=== PATIENT | female | born 1950 | race Caucasian/White ===

== ENCOUNTER → 2017-09-14 | Outpatient (CLI) | payer MEDICARE ==
[~2017-09-14] MED LIST: CLON.5 PO; CLON1 PO; CRUTCH2 USE; CYCL10 PO; DIPH50 PO; GABA300 PO; HYDACE5 PO; HYDACE5325 PO; IBUP600 PO; MELA3 PO; METH10 PO; ONDA4ODT MM; OXYACE5T PO; OXYACE7.5T PO; OXYC15ER PO
== END ==
LOC: LAB SHORT 07:34 → PLD 07:34
DX: D22.9 Melanocytic nevi, unspecified (principal)
CPT/HCPCS: 88305

== ENCOUNTER 2017-11-10 18:00 | Inpatient (IN) | payer MEDICARE ==
[~2017-11-10] VITALS: Ht 154.9 cm; Wt 47.6 kg
[2017-11-10] MEDS ORDERED: TRAZ50 PO (18:15)
[2017-11-10] MEDS ORDERED: CYCL10 PO (18:15)
[2017-11-10] MEDS ORDERED: TRAM50 PO (18:15)
[2017-11-10] MEDS ORDERED: LEVSOD75 PO (18:16)
[2017-11-10] MEDS ORDERED: Lomotil Tablet1 EACH PO (19:07)
[2017-11-11] MEDS ORDERED: TOCO1000 PO (00:06)
[2017-11-11] MEDS ORDERED: BIOTIN-D1 GM XX (00:08)
[2017-11-14 06:06] LABS: BASOPHILS ABSOLUTE AUTO 0.04 K/mm3 (0.00-0.23); BASOPHILS PERCENT AUTO 1 % (0-2); EOSINOPHILS ABSOLUTE AUTO 0.38 K/mm3 (0.00-0.68); EOSINOPHILS PERCENT AUTO 9 % (0-6); Hematocrit 31.1 % (33.0-51.0); Hemoglobin 10.2 g/dL (11.5-16.0); IMMATURE GRAN ABSOLUTE AUTO 0.02 K/mm3 (0.00-0.10); IMMATURE GRAN PERCENT AUTO 1 % (0-1); LYMPHOCYTES ABSOLUTE AUTO 1.31 K/mm3 (0.84-5.20); LYMPHOCYTES PERCENT AUTO 32 % (21-46); MONOCYTES ABSOLUTE AUTO 0.31 K/mm3 (0.16-1.47); MONOCYTES PERCENT AUTO 8 % (4-13); Mean Corpuscular HGB 30.1 pg (26.0-34.0); Mean Corpuscular HGB Conc 32.8 g/dL (31.5-36.5); Mean Corpuscular Volume 92 fL (80-100); Mean Platelet Volume 11.8 fL (9.1-12.4); NEUTROPHILS ABSOLUTE AUTO 2.07 K/mm3 (1.96-9.15); NEUTROPHILS PERCENT AUTO 50 % (41-73); Platelet Count 85 K/mm3 (150-400); RDW Coefficient Variation 13.2 % (11.7-14.2); RDW Standard Deviation 44.6 fL (35.1-46.3); Red Blood Cell Count 3.39 M/mm3 (3.80-5.20); White Blood Cell Count 4.13 K/mm3 (4.00-11.30)
[2017-11-14 06:27] LABS: Anion Gap 8 mmol/L (6-16); Blood Urea Nitrogen 12 mg/dL (8-24); Bun/Creatinine Ratio 16.2 (12.0-20.0); CO2, Blood 26 mmol/L (21-32); Calcium, Blood 8.1 mg/dL (8.5-10.1); Chloride, Blood 104 mmol/L (98-108); Creatinine, Blood 0.74 mg/dL (0.40-1.00); Glomerular Filtration Rate >60 (60-); Glucose, Blood 85 mg/dL (70-99); Sodium, Blood 138 mmol/L (136-145)
[2017-11-16] MEDS ORDERED: ACET325 PO (12:13)
[2017-11-16] MEDS ORDERED: ASCO500 PO (12:13)
[2017-11-16] MEDS ORDERED: BISA10S PR (12:14)
[2017-11-16] MEDS ORDERED: BISA5EC PO (12:14)
[2017-11-16] MEDS ORDERED: Miacalcin I200 IU/ML (12:15)
[2017-11-16] MEDS ORDERED: SOMA350 MG PO (12:17)
[2017-11-16] MEDS ORDERED: DOCU100 PO (12:17)
[2017-11-16] MEDS ORDERED: CAPSAICIN 0.025% TOP (12:17)
[2017-11-16] MEDS ORDERED: Ferrous Sulfat325 M2 PO (12:18)
[2017-11-16] MEDS ORDERED: DIAZ5 PO (12:18)
[2017-11-16] MEDS ORDERED: KETO10 PO (12:19)
[2017-11-16] MEDS ORDERED: GAVILAX17 GM PO (12:19)
[2017-11-16] MEDS ORDERED: LIDO700A20 TOP (12:19)
[2017-11-16] MEDS ORDERED: PANT40 PO (12:20)
[2017-11-16] MEDS ORDERED: Senna8.6 MG PO (12:20)
== END 2017-11-16 15:50 | DRG 536 ==
LOC: ER 18:00 → MEDS 18:01 → ER 21:31 → MEDS 21:31 → EDPENDDIS 11-16 07:34 → ENPENDDIS 11-16 07:34 → MEDS 11-16 15:50
PROVIDERS: Family Medicine
DX: S32.9XXA Fracture of unspecified parts of lumbosacral spine and pelvis, initial encounter for closed fracture (principal); F11.20 Opioid dependence, uncomplicated; D64.9 Anemia, unspecified; E03.9 Hypothyroidism, unspecified; M81.0 Age-related osteoporosis without current pathological fracture; G89.4 Chronic pain syndrome; Z66 Do not resuscitate; W19.XXXA Unspecified fall, initial encounter; Z88.5 Allergy status to narcotic agent; Z88.8 Allergy status to other drugs, medicaments and biological substances
CPT/HCPCS: 36415; 51702; 73502; 80048; 85025; 96372; 96374; 96375; 96376; 97110; 97116; 97162; 97165; 97530; 97535; 99285-25; G0378; G8978; G8979; G8987; G8988; J0630; J1170; J1644; J1885; J3010

== ENCOUNTER 2017-11-21 13:44 | Emergency (ER) | payer MEDICARE ==
[~2017-11-21] VITALS: Ht 154.9 cm; Wt 44.5 kg
[~2017-11-21 13:44] MED LIST changes: +ACET325 PO; +ASCO500 PO; +BIOTIN-D1 GM XX; +BISA10S PR; +BISA5EC PO; +CAPSAICIN 0.025% TOP; +DIAZ5 PO; +DOCU100 PO; +Ferrous Sulfat325 M2 PO; +GAVILAX17 GM PO; +KETO10 PO; +LEVSOD75 PO; +LIDO700A20 TOP; +Lomotil Tablet1 EACH PO; +Miacalcin I200 IU/ML; +PANT40 PO; +SOMA350 MG PO; +Senna8.6 MG PO; +TOCO1000 PO; +TRAM50 PO; +TRAZ50 PO
== END 2017-11-21 14:57 | disposition home or self-care (01) ==
LOC: ER 13:44
DX: S29.011A Strain of muscle and tendon of front wall of thorax, initial encounter (principal); Z88.5 Allergy status to narcotic agent; Z88.1 Allergy status to other antibiotic agents; Z88.8 Allergy status to other drugs, medicaments and biological substances; Z79.899 Other long term (current) drug therapy; X50.1XXA Overexertion from prolonged static or awkward postures, initial encounter
CPT/HCPCS: 99283

== ENCOUNTER 2021-08-24 07:31 | Emergency (ER) | payer MEDICARE ==
[~2021-08-24] VITALS: Ht 154.9 cm; Wt 45.4 kg
== END 2021-08-24 10:27 | disposition home or self-care (01) ==
LOC: ER 07:31
DX: M48.54XA Collapsed vertebra, not elsewhere classified, thoracic region, initial encounter for fracture (principal); M48.56XA Collapsed vertebra, not elsewhere classified, lumbar region, initial encounter for fracture; Z88.1 Allergy status to other antibiotic agents; Z88.5 Allergy status to narcotic agent; Z88.8 Allergy status to other drugs, medicaments and biological substances; Z79.899 Other long term (current) drug therapy; Z91.81 History of falling
CPT/HCPCS: 72070; 72100; A9270

== ENCOUNTER 2021-10-07 20:33 | Emergency (ER) | payer MEDICARE ==
[~2021-10-07] VITALS: Ht 152.4 cm; Wt 44.5 kg
[2021-10-07 21:18] LABS: BASOPHILS ABSOLUTE AUTO 0.05 K/mm3 (0.00-0.23); BASOPHILS PERCENT AUTO 1 % (0-2); EOSINOPHILS ABSOLUTE AUTO 0.02 K/mm3 (0.00-0.68); EOSINOPHILS PERCENT AUTO 0 % (0-6); Hematocrit 42.7 % (33.0-51.0); IMMATURE GRAN PERCENT AUTO 1 % (0-1); LYMPHOCYTES ABSOLUTE AUTO 0.64 K/mm3 (0.84-5.20); LYMPHOCYTES PERCENT AUTO 7 % (21-46); MONOCYTES PERCENT AUTO 7 % (4-13); Mean Corpuscular HGB Conc 32.8 g/dL (31.5-36.5); Mean Corpuscular Volume 88 fL (80-100); Mean Platelet Volume 10.3 fL (9.1-12.4); NEUTROPHILS ABSOLUTE AUTO 8.24 K/mm3 (1.96-9.15); NEUTROPHILS PERCENT AUTO 85 % (41-73); Platelet Count 305 K/mm3 (150-400); RDW Coefficient Variation 14.4 % (11.7-14.2); RDW Standard Deviation 46.3 fL (35.1-46.3); Red Blood Cell Count 4.83 M/mm3 (3.80-5.20); White Blood Cell Count 9.75 K/mm3 (4.00-11.30)
[2021-10-07 21:40] LABS: Albumin, Blood 3.4 g/dL (3.4-5.0); Albumin/Globulin Ratio 0.9 (0.8-1.8); Bilirubin, Total 1.1 mg/dL (0.1-1.0); Calcium, Blood 9.2 mg/dL (8.5-10.1); Creatinine, Blood 0.67 mg/dL (0.40-1.00); Globulin, Blood 3.7 g/dL (2.2-4.0); Potassium, Blood 3.2 mmol/L (3.5-5.5); Total Protein, Blood 7.1 g/dL (6.4-8.2)
[2021-10-08 00:03] LABS: Source, Urine Straight Cath
[2021-10-08 00:05] LABS: Blood, Urine 1+ (Neg); Glucose Qualitative, Urine Neg (Neg); Ketones, Urine 4+ (Neg); Leukocyte Esterase, Urine Neg (Neg); Nitrite, Urine Neg (Neg); Protein, Urine 1+ (Neg); Urobilinogen, Urine 1+ (Normal)
[2021-10-08 00:08] LABS: Appearance, Urine Hazy (Clear); Bilirubin, Urine 1+ (Neg); Color, Urine Yellow (P-Yellow)
[2021-10-08 00:20] LABS: Bacteria Rare /hpf; Red Blood Cells, Urine 0-2 /hpf (0-2); Squamous Epithelial Cells Not Seen /hpf (Few); Transitional Epithelial Cells Few /hpf (0-Rare); White Blood Cells, Urine Not Seen /hpf (0-5)
[2021-10-08 00:21] LABS: U Amphetamine Screen Not Detected; U Barbituate Screen Not Detected; U Benzodiazapine Screen DETECTED; U Buprenorphine Screen Not Detected; U Cannabinoids Screen Not Detected; U Cocaine Screen Not Detected; U Methadone Screen Not Detected; U Methamphetamine Screen Not Detected; U Opiates Screen Not Detected; U Oxycodone Screen DETECTED; U Phencyclidine Screen Not Detected; U Propoxyphene Screen Not Detected
== END 2021-10-08 05:39 | disposition home or self-care (01) ==
LOC: ER 20:33
PROVIDERS: Student in an Organized Health Care Education/Training Program
DX: S22.42XA Multiple fractures of ribs, left side, initial encounter for closed fracture (principal); M48.57XA Collapsed vertebra, not elsewhere classified, lumbosacral region, initial encounter for fracture; W19.XXXA Unspecified fall, initial encounter; Z79.899 Other long term (current) drug therapy; Z88.5 Allergy status to narcotic agent; Z88.1 Allergy status to other antibiotic agents; Z88.8 Allergy status to other drugs, medicaments and biological substances
CPT/HCPCS: 36415; 70450; 71101; 72125; 72128; 72131; 73620; 80053; 81001; 82140; 82550; 83735; 84484; 85025; 93005; 93010; 96374; 96376; 99285-25; A9270; J2270; J7030

== ENCOUNTER 2021-10-10 12:56 | Emergency (ER) | payer MEDICARE ==
[~2021-10-10] VITALS: Ht 154.9 cm; Wt 40.8 kg
[2021-10-10 13:57] LABS: BASOPHILS ABSOLUTE AUTO 0.03 K/mm3 (0.00-0.23); BASOPHILS PERCENT AUTO 0 % (0-2); EOSINOPHILS PERCENT AUTO 0 % (0-6); Hematocrit 35.8 % (33.0-51.0); Hemoglobin 12.2 g/dL (11.5-16.0); IMMATURE GRAN ABSOLUTE AUTO 0.19 K/mm3 (0.00-0.10); IMMATURE GRAN PERCENT AUTO 2 % (0-1); LYMPHOCYTES ABSOLUTE AUTO 0.44 K/mm3 (0.84-5.20); LYMPHOCYTES PERCENT AUTO 4 % (21-46); MONOCYTES ABSOLUTE AUTO 0.64 K/mm3 (0.16-1.47); MONOCYTES PERCENT AUTO 5 % (4-13); Mean Corpuscular HGB 29.2 pg (26.0-34.0); Mean Corpuscular HGB Conc 34.1 g/dL (31.5-36.5); Mean Corpuscular Volume 86 fL (80-100); Mean Platelet Volume 10.3 fL (9.1-12.4); NEUTROPHILS ABSOLUTE AUTO 11.09 K/mm3 (1.96-9.15); NEUTROPHILS PERCENT AUTO 90 % (41-73); Platelet Count 258 K/mm3 (150-400); RDW Coefficient Variation 14.4 % (11.7-14.2); RDW Standard Deviation 44.4 fL (35.1-46.3); Red Blood Cell Count 4.18 M/mm3 (3.80-5.20); White Blood Cell Count 12.39 K/mm3 (4.00-11.30)
[2021-10-10 14:14] LABS: Albumin, Blood 3.2 g/dL (3.4-5.0); Bilirubin, Total 1.3 mg/dL (0.1-1.0); Bun/Creatinine Ratio 42.6 (12.0-20.0); Calcium, Blood 8.8 mg/dL (8.5-10.1); Creatinine, Blood 0.47 mg/dL (0.40-1.00); Globulin, Blood 3.1 g/dL (2.2-4.0); Potassium, Blood 2.9 mmol/L (3.5-5.5); Total Protein, Blood 6.3 g/dL (6.4-8.2)
[2021-10-10 14:34] LABS: Source, Urine Fem Cath
[2021-10-10 14:39] LABS: Bilirubin, Urine Neg (Neg); Blood, Urine 1+ (Neg); Color, Urine Yellow (P-Yellow); Glucose Qualitative, Urine Neg (Neg); Ketones, Urine 4+ (Neg); Leukocyte Esterase, Urine Neg (Neg); Nitrite, Urine Neg (Neg); Protein, Urine 1+ (Neg); Urobilinogen, Urine NORM (Normal)
[2021-10-10 14:49] LABS: Appearance, Urine Hazy (Clear)
[2021-10-10 14:50] LABS: Amorphous Light (0-Heavy); Bacteria Mod /hpf; Hyaline Casts 0-2 /lpf (0-2); Mucus Light (0-Heavy); Red Blood Cells, Urine 0-2 /hpf (0-2); Renal Epithelial Rare /hpf (0-Rare); Squamous Epithelial Cells Rare /hpf (Few); White Blood Cells, Urine 0-2 /hpf (0-5)
[2021-10-10 15:01] LABS: U Opiates Screen DETECTED
[2021-10-10 15:02] LABS: U Amphetamine Screen Not Detected; U Barbituate Screen Not Detected; U Benzodiazapine Screen DETECTED; U Buprenorphine Screen Not Detected; U Cannabinoids Screen Not Detected; U Cocaine Screen Not Detected; U Methadone Screen Not Detected; U Methamphetamine Screen Not Detected; U Oxycodone Screen DETECTED; U Phencyclidine Screen Not Detected; U Propoxyphene Screen Not Detected
[2021-10-10 15:03] LABS: Free Thyroxine 1.45 ng/dL (0.70-1.60)
[2021-10-10 15:05] LABS: Triiodothyronine, Free 1.71 pg/mL (2.18-3.98)
[2021-10-11 11:55] LABS: Influenza A, PCR NEGATIVE (NEGATIVE); Influenza B, PCR NEGATIVE (NEGATIVE); Resp Syncytial Virus, PCR NEGATIVE (NEGATIVE); SARS-Cov-2 (COVID-19) PCR, MMC NEGATIVE (NEGATIVE)
== END 2021-10-11 16:09 ==
LOC: ER 12:56
PROVIDERS: Student in an Organized Health Care Education/Training Program
DX: R41.0 Disorientation, unspecified (principal); E03.9 Hypothyroidism, unspecified; S40.022A Contusion of left upper arm, initial encounter; S40.021A Contusion of right upper arm, initial encounter; S90.112A Contusion of left great toe without damage to nail, initial encounter; I10 Essential (primary) hypertension; E80.6 Other disorders of bilirubin metabolism; E87.6 Hypokalemia; K76.89 Other specified diseases of liver; Z91.81 History of falling; W06.XXXA Fall from bed, initial encounter
CPT/HCPCS: 0241U; 36415; 51798; 71045; 76705; 80053; 81001; 82140; 84439; 84481; 85025; 93005; 93010; 97162; 97530; A9270; G0480; P9612

== ENCOUNTER 2024-05-04 06:09 | Observation (INO) | payer OTHER ==
[~2024-05-04] VITALS: Ht 57.5 cm; Wt 87.2 kg
[~2024-05-04 06:09] MED LIST changes: +Budeprion Xl300 MG PO; +LISINOPRIL2.5 MG PO; +OXYC10TA19 PO; +PROZAC20 M9 PO; +TRAZ100 PO; -TRAZ50 PO
[2024-05-04 06:35] LABS: BASOPHILS ABSOLUTE AUTO 0.04 K/mm3 (0.00-0.23); BASOPHILS PERCENT AUTO 0 % (0-2); EOSINOPHILS ABSOLUTE AUTO 0.07 K/mm3 (0.00-0.68); EOSINOPHILS PERCENT AUTO 1 % (0-6); Hematocrit 33.6 % (33.0-51.0); Hemoglobin 11.1 g/dL (11.5-16.0); IMMATURE GRAN ABSOLUTE AUTO 0.09 K/mm3 (0.00-0.10); IMMATURE GRAN PERCENT AUTO 1 % (0-1); LYMPHOCYTES ABSOLUTE AUTO 0.91 K/mm3 (0.84-5.20); LYMPHOCYTES PERCENT AUTO 7 % (21-46); MONOCYTES ABSOLUTE AUTO 0.77 K/mm3 (0.16-1.47); MONOCYTES PERCENT AUTO 6 % (4-13); Mean Corpuscular HGB 29.3 pg (26.0-34.0); Mean Corpuscular Volume 89 fL (80-100); Mean Platelet Volume 9.7 fL (9.1-12.4); NEUTROPHILS ABSOLUTE AUTO 10.61 K/mm3 (1.96-9.15); NEUTROPHILS PERCENT AUTO 85 % (41-73); Platelet Count 353 K/mm3 (150-400); RDW Coefficient Variation 12.8 % (11.7-14.2); Red Blood Cell Count 3.79 M/mm3 (3.80-5.20); White Blood Cell Count 12.49 K/mm3 (4.00-11.30)
[2024-05-04 06:58] LABS: Albumin, Blood 2.7 g/dL (3.4-5.0); Albumin/Globulin Ratio 0.8 (0.8-1.8); Bilirubin, Total 0.6 mg/dL (0.1-1.0); Bun/Creatinine Ratio 24.1 (12.0-20.0); Calcium, Blood 8.1 mg/dL (8.5-10.1); Creatinine, Blood 0.62 mg/dL (0.40-1.00); Globulin, Blood 3.6 g/dL (2.2-4.0); Potassium, Blood 3.3 mmol/L (3.5-5.5); Total Protein, Blood 6.3 g/dL (6.4-8.2)
[2024-05-04 07:46] LABS: Free Thyroxine 1.78 ng/dL (0.70-1.60); Magnesium, Blood 1.7 mg/dL (1.6-2.4); Thyroid Stimulating Hormone 0.729 uIU/mL (0.360-4.800)
[2024-05-04 08:29] LABS: Source, Urine Clean Catch
[2024-05-04 08:43] LABS: Appearance, Urine Clear (Clear); Bilirubin, Urine Neg (Neg); Blood, Urine Neg (Neg); Color, Urine Yellow (P-Yellow); Glucose Qualitative, Urine Neg (Neg); Ketones, Urine Neg (Neg); Leukocyte Esterase, Urine Neg (Neg); Nitrite, Urine Neg (Neg); Protein, Urine 2+ (Neg); Specific Gravity, Urine 1.015 (1.003-1.022); Urobilinogen, Urine 2+ (Normal); pH, Urine 6.5 (5.0-8.0)
[2024-05-04 08:51] LABS: Bacteria Not Seen /hpf; Mucus Light (0-Heavy); Red Blood Cells, Urine 0-2 /hpf (0-2); Squamous Epithelial Cells Rare /hpf (Few); White Blood Cells, Urine 0-2 /hpf (0-5)
[2024-05-04] MEDS ORDERED: Bisacodyl 5 MG TabEC PO PRN (11:30)
[2024-05-04] MEDS ORDERED: Docusate Sodium 100 MG Cap PO PRN (11:35)
[2024-05-04] MEDS ORDERED: Acetaminophen 325 MG TABLET PO PRN (11:40)
[2024-05-04] MEDS ORDERED: Sennosides 8.6 MG Tab PO PRN (11:40)
[2024-05-04] MEDS ORDERED: OxyCODONE HCL 5 MG TAB PO PRN (11:40)
[2024-05-04] MEDS ORDERED: Potassium Chloride 20 MEQ TabCR PO ONE (12:00)
[2024-05-04] MEDS ORDERED: Potassium Chloride 40 MEQ in NS 250 ML IV ONE (12:30)
[2024-05-04] MEDS ORDERED: Capsaicin 0.025% Cream TOP PRN (13:00)
[2024-05-04] MEDS ORDERED: FLU VACC TS2024-25(6MOS UP)/PF 45 MCG/0.5 ML SYRINGE IM ONE (13:30)
[2024-05-04 15:40] VITALS: BP 136/90
--- NOTE | 2024-05-04 18:37 | NUR ---
ADMISSION NOTE: PATIENT ARRIVES TO ROOM AT 1530 VIA GURNEY FROM ER FOR DX'S OF TIA. PATIENT TRANSFERRED TO BED USING SLIDER SHEET c 3 MAX ASSIST. PATIENT ORIENTATED TO ROOM AND CALL SYSTEM. PATIENT ADMISSION, MEDRIC AND SKIN ASSESSMENT c 2 RN'S VERIFIED COMPLETED. PATIENT NOT ABLE TO CONTRIBUTE ANY MEDICAL HX D/T AMS. ALL MEDICAL HX AND MEDRIC WAS PROVIDED BY PRIVATE CAREGIVER NAME PRIYA AT BEDSIDE. PATIENT A/O TO SELF ONLY, CONFUSED, ANXIOUS. PATIENT REPORTS VISUAL HALLUCINATION. PER PATIENT "I'M SEEING BETTLES AND BLUE SIGNED COLOR IN ROOM. 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 PATIENT REPORTS PAIN TO SHOULDER, MEDICATED c PAIN MEDS PER EMAR. PATIENT IS CONTINENT OF BLADDER, USES BEDPAN c 1 ASSIST. VITAL SIGNS REVIEWED. BED ALARM ON FOR SAFETY. CALL LIGHT IN REACH.
[2024-05-04 20:29] VITALS: BP 157/88
[2024-05-04] MEDS ORDERED: Melatonin 3 MG Tab PO SCH (21:00)
[2024-05-04] MEDS ORDERED: Diazepam 5 MG Tab PO PRN (23:25)
--- NOTE | 2024-05-05 00:14 | NUR ---
PT IS BECOMING INCREASINGLY ANXIOUS AND PARANOID. HOSPITALIST WAS CALLED CONCERNING ANXIETY RELIEF. HOSPITALIST GAVE ORDERS FOR VALIUM.
[2024-05-05 01:34] VITALS: BP 131/63
[2024-05-05 05:15] LABS: BASOPHILS ABSOLUTE AUTO 0.05 K/mm3 (0.00-0.23); BASOPHILS PERCENT AUTO 0 % (0-2); EOSINOPHILS ABSOLUTE AUTO 0.14 K/mm3 (0.00-0.68); EOSINOPHILS PERCENT AUTO 1 % (0-6); Hematocrit 31.9 % (33.0-51.0); Hemoglobin 10.3 g/dL (11.5-16.0); IMMATURE GRAN ABSOLUTE AUTO 0.13 K/mm3 (0.00-0.10); IMMATURE GRAN PERCENT AUTO 1 % (0-1); LYMPHOCYTES ABSOLUTE AUTO 1.46 K/mm3 (0.84-5.20); LYMPHOCYTES PERCENT AUTO 12 % (21-46); MONOCYTES ABSOLUTE AUTO 0.91 K/mm3 (0.16-1.47); MONOCYTES PERCENT AUTO 7 % (4-13); Mean Corpuscular HGB 28.7 pg (26.0-34.0); Mean Corpuscular HGB Conc 32.3 g/dL (31.5-36.5); Mean Corpuscular Volume 89 fL (80-100); Mean Platelet Volume 9.8 fL (9.1-12.4); NEUTROPHILS ABSOLUTE AUTO 9.82 K/mm3 (1.96-9.15); NEUTROPHILS PERCENT AUTO 79 % (41-73); Platelet Count 379 K/mm3 (150-400); RDW Coefficient Variation 12.8 % (11.7-14.2); RDW Standard Deviation 41.9 fL (35.1-46.3); Red Blood Cell Count 3.59 M/mm3 (3.80-5.20); White Blood Cell Count 12.51 K/mm3 (4.00-11.30)
[2024-05-05 05:39] LABS: Alanine Aminotransfer (ALT/SGP 16 U/L (12-78); Albumin, Blood 2.8 g/dL (3.4-5.0); Albumin/Globulin Ratio 0.8 (0.8-1.8); Alk Phos 82 U/L (50-136); Anion Gap 11 mmol/L (3-11); Aspartate Aminotrans (AST/SGOT 33 U/L (12-37); Bilirubin, Total 0.5 mg/dL (0.1-1.0); Blood Urea Nitrogen 15 mg/dL (8-24); Bun/Creatinine Ratio 26.5 (12.0-20.0); CHOL/HDL RATIO 1.8; CO2, Blood 22 mmol/L (21-32); Calcium, Blood 8.7 mg/dL (8.5-10.1); Chloride, Blood 109 mmol/L (98-108); Cholesterol 98 mg/dL (50-200); Creatinine, Blood 0.57 mg/dL (0.40-1.00); Globulin, Blood 3.5 g/dL (2.2-4.0); Glomerular Filtration Rate 95 (60-); Glucose, Blood 76 mg/dL (70-99); HDL Cholesterol 56 mg/dL (>39); LDL/HDL RATIO 0.6; Low Density Lipoprotein Chol 32 mg/dL (0-110); Potassium, Blood 3.8 mmol/L (3.5-5.5); Sodium, Blood 138 mmol/L (136-145); Total Protein, Blood 6.3 g/dL (6.4-8.2); Triglycerides 48 mg/dL (30-160); Very Low Density Lipoprot Chol 9 mg/dL (6-32)
[2024-05-05] MEDS ORDERED: Levothyroxine Sodium 0.075 MG Tab PO SCH (06:00)
[2024-05-05] MEDS ORDERED: Pantoprazole Sodium 40 MG Tab PO SCH (06:00)
--- NOTE | 2024-05-05 06:14 | NUR ---
SHIFT SUMMARY PT HAS BEEN RESTING IN BED. PT HAS BEEN AOX2, CONFUSED AND HALLUCINATING. PT HAS BEEN REDIRECTABLE, BUT EXPRESSES ANXIETY ABOUT HER HALLUCINATIONS. SHE HAS BEEN TALKING OUT LOUD FOR MOST OF THE NIGHT. HER SPEECH VARIES IN VOLUME, SEEMINGLY AT RANDOM. PT HAS BEEN ON RA. SHE HAS BEEN ON TELE WELL. PT HAS BEEN BEDREST ALL NIGHT. NO OTHER COMPLAINTS. NO ACUTE EVENTS OVERNIGHT.
[2024-05-05 07:39] VITALS: BP 146/82
[2024-05-05] MEDS ORDERED: Ascorbic Acid 500 MG Tab PO SCH (09:00)
[2024-05-05] MEDS ORDERED: FLUoxetine HCL 20 MG CAP PO SCH (09:00)
[2024-05-05] MEDS ORDERED: Aspirin 81 MG Chew PO SCH (09:00)
[2024-05-05] MEDS ORDERED: Lidocaine 4% 1 Patch TOP SCH (09:00)
[2024-05-05] MEDS ORDERED: Atorvastatin 40 MG Tab PO SCH (09:00)
[2024-05-05] MEDS ORDERED: Atorvastatin 10 MG Tab PO SCH (09:00)
[2024-05-05] MEDS ORDERED: Cyanocobalamin 500 MCG Tab PO SCH (09:00)
[2024-05-05] MEDS ORDERED: Enoxaparin 40 MG/0.4 ML SYR SC SCH (09:00)
[2024-05-05] MEDS ORDERED: Calcitonin Salmon 3.7 ML Nasal Spray SCH (09:00)
[2024-05-05] MEDS ORDERED: Clopidogrel Bisulfate 75 MG Tab PO SCH (09:00)
[2024-05-05] MEDS ORDERED: QUEtiapine Fumarate 25 MG Tab PO SCH (09:00)
[2024-05-05] MEDS ORDERED: Ferrous Sulfate 325 MG Tab PO SCH (09:00)
[2024-05-05] MEDS ORDERED: Polyethylene Glycol 3350 17 gm PO SCH (09:00)
[2024-05-05] MEDS ORDERED: Lisinopril 5 MG Tab PO SCH (09:00)
[2024-05-05 11:36] VITALS: BP 149/81
[2024-05-05 16:13] VITALS: BP 133/99
--- NOTE | 2024-05-05 16:30 | NUR ---
SHIFT SUMMARY: PATIENT A/OX2-3, CONFUSED, LESS ANXIOUS AND EASILY REDIRECTABLE. PATIENT STILL REPORTS VISUAL/AUDITORY HALLUCINATION THIS SHIFT. PATIENT MEDICATED X1 FOR ANXIETY AND X1 FOR PAIN c GOOD EFFECT. PATIENT HAS FAIR APPETITE, CONT/INCON OF BLADDER USES BEDPAN, ATTENDS IN PLACED AND CHANGED PRN. PATIENT RECEIVED SCHEDULED MEDS PER EMAR. PATIENT SLEPT FOR TWO HRS THIS SHIFT. VITAL SIGNS REVIEWED. BED ALARM ON FOR SAFETY. CALL LIGHT IN REACH.
[2024-05-05 19:28] VITALS: BP 139/78
[2024-05-06 03:20] VITALS: BP 146/75
--- NOTE | 2024-05-06 05:47 | NUR ---
SHIFT SUMMARY PT HAS BEEN RESTING IN BED COMFORTABLY OVERNIGHT. PT HAS BEEN AOX2, TO SELF AND PLACE. PT HAS BEEN CONFUSED OFTEN, THINKING THAT SHE IS AT HOME. SHE IS REDIRECTABLE. OVER COURSE OF NIGHT, PT HAS BEEN INCREASINGLY CONFUSED, BUT SHE REMAINS REDIRECTABLE. PT HAS BEEN BEDREST, BUT DESIRES TO WALK TO BATHROOM. SHE HAS ATTEMPTED TO GET OUT OF BED A COUPLE OF TIMES, BUT WAS REDIRECTED TO STAY IN BED. PT HAS WEAK LOWER EXTREMITES. TELEMETRY IS ON. NO ACUTE EVENTS OVERNIGHT.
[2024-05-06 07:47] VITALS: BP 140/67
--- NOTE | 2024-05-06 09:00 | NUR ---
pt ambulated out in dahl with PT, using walker and gait belt, a/ox2-3, is pleasant and cooperative with care, follows commands well, denies pain at this time, is tremulous, frail, needs a lot of direction, scattered thoughts, lungs are clear t/o, resp even and unlabored, no cough noted, on r/a, hrr, tele in place running sr per montior, see strip, no edema noted, ppp+1, cap refill <3 sec, vs stable, afebrile, piv to rfa and lac, sites are clear and patent, btx4, abd flat soft nontender, voids via bed mar[place], sometimes incont, skin cw/d, coccyx is pink, blanchable, maew, weak, monique, call light in reach.
[2024-05-06 12:05] VITALS: BP 123/66
[2024-05-06] MEDS ORDERED: ASPI81CH PO (13:38)
[2024-05-06] MEDS ORDERED: ATOR10 PO (13:38)
--- NOTE | 2024-05-06 13:38 | NUR ---
MET WITH PT YESTERDAY AND AGAIN TODAY. HER MENTATION HAS CLEARED SOMEWHAT SINCE YESTERDAY, BUT SHE CAN EASILY LOSE TRACK OF THE CONVERSATION. SHE STATES SHE KNOWS SHE NEEDS MORE CAREGIVER SUPPORT, BUT IS NOT WILLING TO ENTERTAIN THE IDEA OF ASSISTED LIVING AT THIS POINT. THE PATIENT STATES SHE IS INTERESTED IN HOSPICE, BUT HOSPITALIST FEELS IT IS PREMATURE AT THIS TIME, AND SENDING HER WITH HH. EDUCATED PT TO REVIEW GOALS OF CARE WITH PCP AT NEXT VISIT, INCLUDING HER DESIRE FOR HOSPICE. SHE V/U. 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
[2024-05-06] MEDS ORDERED: QUET25 PO (13:40)
--- NOTE | 2024-05-06 14:49 | NUR ---
Pt has been discharged to home, she is somewhat confused, and insist that her neighbor brought her nightstand in for her, wants to know where it is, explained that kind of stuff isn't brought to the hosp. went over discharge instructions with her, her new medications were faxed to [facility], ivx2 removed intact, left via wheelchair with transport with all her belongings.
== END 2024-05-06 16:09 | disposition home health service (06) ==
LOC: ER 06:09 → ERHOLD 06:10 → MEDS 15:20
PROVIDERS: Emergency Medicine; ADMIT Internal Medicine
DX: G45.9 Transient cerebral ischemic attack, unspecified (principal); F03.90 Unspecified dementia, unspecified severity, without behavioral disturbance, psychotic disturbance, mood disturbance, and anxiety; E03.9 Hypothyroidism, unspecified; G89.29 Other chronic pain; K58.9 Irritable bowel syndrome, unspecified; M81.0 Age-related osteoporosis without current pathological fracture; Z66 Do not resuscitate; Z79.890 Hormone replacement therapy; Z79.899 Other long term (current) drug therapy; Z90.49 Acquired absence of other specified parts of digestive tract; Z88.1 Allergy status to other antibiotic agents; Z88.5 Allergy status to narcotic agent; Z88.8 Allergy status to other drugs, medicaments and biological substances; Z91.018 Allergy to other foods
CPT/HCPCS: 36415; 51701; 70450; 70496; 70498; 71045; 80053; 80061; 81001; 82607; 82746; 83036; 83735; 84439; 84443; 85025; 93005; 93010; 94760; 96374-59; 97116; 97162; 99285-25; A9270; G0378; J3480; J7050; Q9967